=== PATIENT | female | born 1995 | race Two or more races ===

== ENCOUNTER 2024-01-01 16:58 | Emergency (ER) | payer BC ==
[~2024-01-01] VITALS: Ht 152.4 cm; Wt 54.4 kg
[2024-01-01] MEDS ORDERED: CEFTRIAXONE SODIUM 1,000 MG VIAL IM ONE (18:15)
[2024-01-01 19:04] LABS: URINE APPEARANCE Clear; URINE BILIRRUBIN Negative (NEGATIVE); URINE BLOOD Negative; URINE COLOR Dark Yellow; URINE GLUCOSE Negative (NEGATIVE); URINE KETONE Negative (NEGATIVE); URINE LEUKOCYTE Negative; URINE NITRATE Positive; URINE PROTEIN Negative (NEGATIVE)
[2024-01-01 19:08] LABS: URINE BACTERIA 471.2 uL (0.0-1933); URINE EPITHELIAL CELLS 5.8 uL (0.0-38.8); URINE RBC 35.4 uL (0.0-20.8); URINE WBC 7.8 uL (0.0-23.2)
[2024-01-01 19:21] LABS: URINE CAST 0.15 uL (0.0-1.40)
[2024-01-01] MEDS ORDERED: BACTRIM DS TAB1 EACH PO (19:30)
== END 2024-01-01 20:30 | disposition home or self-care (01) ==
LOC: ER 16:59
PROVIDERS: General Practice
DX: N39.0 Urinary tract infection, site not specified (principal)